=== PATIENT | male | born 1950 | race Caucasian/White ===

== ENCOUNTER → 2018-06-07 | Outpatient (REF) | payer OTHER ==
[2018-06-07 19:33] LABS: APPEARANCE, URINE CLEAR (CLEAR); BACTERIA, URINE AUTO NEGATIVE (NEGATIVE); BILIRUBIN, URINE AUTO NEGATIVE (NEGATIVE); BLOOD, URINE BLOOD 1+ (NEGATIVE); COLOR, URINE STRAW (YELLOW); GLUCOSE, URINE (UA) AUTO NEGATIVE (NEGATIVE); KETONE, URINE AUTO NEGATIVE (NEGATIVE); LEUKOCYTE ESTERASE, URINE AUTO NEGATIVE (NEGATIVE); NITRITE, URINE AUTO NEGATIVE (NEGATIVE); PROTEIN, URINE AUTO NEGATIVE (NEGATIVE); RBC, URINE AUTO 1 /HPF (0-3); SPECIFIC GRAVITY URINE AUTO 1.008 (1.002-1.035); SQUAMOUS EPITHELIAL CELL UR AU 0 /HPF (0-6); UROBILINOGEN, URINE AUTO 0.2 mg/dL (0.0-2.0); WBC, URINE AUTO 0 /HPF (0-3)
== END ==
LOC: M SMT 17:26
DX: R35.0 Frequency of micturition (principal); R97.20 Elevated prostate specific antigen [PSA]

== ENCOUNTER → 2018-06-29 | Outpatient (CLI) | payer MEDICARE, OTHER, MEDICAID | LOC: M SMT PRO 10:41 | DX: C61 Malignant neoplasm of prostate (principal) | CPT/HCPCS: 55700; G0416 ==

== ENCOUNTER → 2018-09-21 | Outpatient (CLI) | payer MEDICAID, MEDICARE ==
--- NOTE | 2018-09-21 13:17 | REP ---
Transrectal prostate sonographic guidance: History: Prostate carcinoma. Findings: Transrectal ultrasound guidance is provided to Dr. Ruth who placed fiducial markers. Electronically Signed by Jean Tai MD 09/21/2018 01:09 P
== END ==
LOC: M SMT 09:34
PROVIDERS: ATTEND Urology
DX: C61 Malignant neoplasm of prostate (principal)
CPT/HCPCS: 76872; A4648